=== PATIENT | female | born 1990 | race African-American/Black ===

== ENCOUNTER 2019-12-25 15:30 | Inpatient (IN) | payer OTHER ==
[2019-12-25] MEDS ORDERED: DEXTROSE 5%-LACTATED RINGERS 1,000 ML IV SCH (16:15)
[2019-12-25 16:25] VITALS: BMI 41.3
[2019-12-25 16:44] LABS: BASO % 0.3 % (0-2.0); EOS % 0.8 % (0-4.5); HEMATOCRIT 37.2 % (32.4-45.2); LYMPH % 23.9 % (8-40); MCH 25.6 pg (25.7-33.7); MCHC 32.3 g/dl (32.0-36.0); MEAN CELL VOLUME 79.3 fl (80-96); MEAN PLT VOLUME 7.7 fl (7.5-11.1); MONO % 7.5 % (3.8-10.2); NEUT % 67.5 % (42.8-82.8); PLATELET COUNT 304 K/MM3 (134-434)
[2019-12-25 16:52] LABS: INR 0.9 (0.83-1.09); PROTHROMBIN TIME (PATIENT) 11.1 SEC (9.7-13.0)
[2019-12-25 16:54] LABS: ACTIVATED PTT 28.3 SECONDS (25.2-36.5)
[2019-12-25 17:16] LABS: POTASSIUM 3.8 mmol/L (3.5-5.1)
[2019-12-25 17:17] LABS: CALCIUM 9.3 mg/dL (8.5-10.1)
[2019-12-25 17:18] LABS: BLOOD UREA NITROGEN 6.7 mg/dL (7-18)
[2019-12-25 17:21] LABS: CREATININE 0.8 mg/dL (0.55-1.3)
[2019-12-25] MEDS ORDERED: ONDANSETRON 4 MG/2 ML VIAL IVPUSH PRN (20:00)
[2019-12-25] MEDS ORDERED: morphine SULFATE/PF 0.5 MG/ML (2cc Syringe - QUVA) ONE (20:08)
[2019-12-25] MEDS ORDERED: ceFAZolin SODIUM 1 GM VIAL ONE ×2 (20:41→20:51)
[2019-12-25] MEDS ORDERED: PHENYLEPHRINE HCL 10 MG/1 ML SINGLE DOSE VIAL ONE (20:51)
[2019-12-25] MEDS ORDERED: OXYTOCIN 10 UNITS/ML VIAL ONE ×2 (20:51→22:06)
[2019-12-25] MEDS ORDERED: CITRIC ACID/SODIUM CITRATE 30 ML UNIT-DOSE CUP PO ONE (23:00)
[2019-12-25] MEDS ORDERED: OXYTOCIN 20 UNITS in 0.9% NS 20 UNIT/1,000 ML INFUS.BAG IV SCH (23:45)
[2019-12-25] MEDS ORDERED: OXYTOCIN 20 UNITS in 0.9% NS 20 UNIT/1,000 ML INFUS.BAG IV ONE (23:59)
[2019-12-26] MEDS ORDERED: MORPHINE SULFATE 2 MG/ML VIAL IVPUSH PRN (00:24)
[2019-12-26 00:36] LABS: CORD BASE EXCESS -7.9 mmol/L (0-2); CORD HCO3 21.7 mmHg (20-29); CORD PCO2 61.3 mmHg (30-78); CORD pH 7.167 (7.14-7.44)
[2019-12-26 00:39] LABS: CORD BASE EXCESS -4.5 mmol/L (0-2); CORD HCO3 22.8 mmHg (20-29); CORD PCO2 50.3 mmHg (30-78); CORD pH 7.275 (7.14-7.44)
[2019-12-26 08:32] LABS: BASO % 0.2 % (0-2.0); EOS % 0.6 % (0-4.5); HEMATOCRIT 29.9 % (32.4-45.2); HEMOGLOBIN 9.8 GM/dL (10.7-15.3); LYMPH % 18.6 % (8-40); MCH 25.8 pg (25.7-33.7); MCHC 32.6 g/dl (32.0-36.0); MEAN CELL VOLUME 79.2 fl (80-96); MEAN PLT VOLUME 7.4 fl (7.5-11.1); MONO % 8.3 % (3.8-10.2); NEUT % 72.3 % (42.8-82.8); PLATELET COUNT 236 K/MM3 (134-434); RBC 3.78 M/mm3 (3.60-5.2); RDW 14.7 % (11.6-15.6); WHITE BLOOD COUNT 9.3 K/mm3 (4.0-10.0)
[2019-12-26] MEDS: SIMETHICONE 80 MG TAB.CHEW (FP) PO PRN ×3 (08:33→22:30)
[2019-12-26] MEDS: IBUPROFEN 600 MG TABLET (FP) PO PRN ×3 (08:33→21:26)
[2019-12-26] MEDS: HEPARIN NA (PORCINE) 5,000 UNITS/ML 1ML VIAL SQ SCH ×2 (10:23→21:27)
[2019-12-26] MEDS: PRENATAL VITAMINS W/ FOLIC ACID TABLET (FP) PO SCH (10:51)
[2019-12-26] MEDS: ACETAMINOPHEN 325 MG TABLET (FP) PO PRN (16:44)
[2019-12-26] MEDS: oxyCODONE HCL 5 MG TABLET PO PRN (22:29)
[2019-12-26] MEDS ORDERED: BISACODYL 10 MG SUPP.RECT RC PRN (23:18)
[2019-12-27] MEDS: oxyCODONE HCL 5 MG TABLET PO PRN ×3 (03:29→18:16)
[2019-12-27] MEDS: IBUPROFEN 600 MG TABLET (FP) PO PRN ×3 (03:31→21:10)
[2019-12-27] MEDS: SIMETHICONE 80 MG TAB.CHEW (FP) PO PRN ×3 (03:31→18:18)
[2019-12-27] MEDS: PRENATAL VITAMINS W/ FOLIC ACID TABLET (FP) PO SCH (09:49)
[2019-12-27] MEDS: HEPARIN NA (PORCINE) 5,000 UNITS/ML 1ML VIAL SQ SCH ×2 (09:52→21:09)
[2019-12-28] MEDS: oxyCODONE HCL 5 MG TABLET PO PRN ×2 (03:01→10:03)
[2019-12-28] MEDS: ACETAMINOPHEN 325 MG TABLET (FP) PO PRN ×2 (03:02→10:03)
[2019-12-28 07:58] LABS: BASO % 0.3 % (0-2.0); EOS % 2.2 % (0-4.5); HEMATOCRIT 27.4 % (32.4-45.2); HEMOGLOBIN 8.7 GM/dL (10.7-15.3); LYMPH % 25.9 % (8-40); MCH 25.2 pg (25.7-33.7); MCHC 31.9 g/dl (32.0-36.0); MEAN PLT VOLUME 7.2 fl (7.5-11.1); MONO % 6.6 % (3.8-10.2); PLATELET COUNT 278 K/MM3 (134-434); RBC 3.47 M/mm3 (3.60-5.2); RDW 14.7 % (11.6-15.6); WHITE BLOOD COUNT 8.3 K/mm3 (4.0-10.0)
[2019-12-28] MEDS: PRENATAL VITAMINS W/ FOLIC ACID TABLET (FP) PO SCH (10:03)
[2019-12-28] MEDS: SIMETHICONE 80 MG TAB.CHEW (FP) PO PRN (10:04)
[2019-12-28] MEDS: HEPARIN NA (PORCINE) 5,000 UNITS/ML 1ML VIAL SQ SCH (10:04)
[2019-12-28 10:05] VITALS: BP 124/77; PULSE 99; TEMP 98.3
== END 2019-12-28 12:05 | disposition home or self-care (01) | DRG 540 ==
LOC: JLDR 15:30 → J3W 12-26 00:04
PROVIDERS: ADMIT Obstetrics & Gynecology Maternal & Fetal Medicine; ATTEND Obstetrics & Gynecology Maternal & Fetal Medicine
PROC: 10D00Z1 Extraction of Products of Conception, Low, Open Approach (ICD-10-PCS; principal; 2019-12-25)
DX: O41.8X30 Other specified disorders of amniotic fluid and membranes, third trimester, not applicable or unspecified (principal); O34.219 Maternal care for unspecified type scar from previous cesarean delivery; O13.3 Gestational [pregnancy-induced] hypertension without significant proteinuria, third trimester; Z37.0 Single live birth; O99.214 Obesity complicating childbirth; E66.01 Morbid (severe) obesity due to excess calories; Z3A.40 40 weeks gestation of pregnancy; O99.892 Other specified diseases and conditions complicating childbirth; N73.6 Female pelvic peritoneal adhesions (postinfective)
CPT/HCPCS: 36415; 36600; 80048; 82803; 85025; 85461; 85610; 85730; 86780; 86850; 86900; 86901; 88307-TC; C9803; J1644; U0003